=== PATIENT | female | born 1995 | race Caucasian/White ===

== ENCOUNTER 2019-05-11 05:38 | Inpatient (IN) | payer OTHER ==
[2019-05-11] MEDS ORDERED: Oxytocin/Normal Saline 30 UNIT/500 ML BAG ONE (06:39)
[2019-05-11] MEDS ORDERED: Lidocaine 1% 30 ML SDV ONE (06:39)
[2019-05-11] MEDS ORDERED: Misoprostol 400 MCG (4 X 100 MCG TAB) RECTAL PRN (06:50)
[2019-05-11] MEDS ORDERED: Lidocaine 1% 30 ML SDV INJECT PRN (06:50)
[2019-05-11] MEDS ORDERED: Carboprost Tromethamine 250 MCG/1 ML Amp IM PRN (06:50)
[2019-05-11] MEDS ORDERED: Ondansetron 4 MG/2 ML SDV IVPUSH PRN (06:50)
[2019-05-11] MEDS ORDERED: Sodium Chloride 0.9% 10 ML Syringe FLUSH PRN ×2 (06:50→13:43)
[2019-05-11] MEDS ORDERED: Methylergonovine 0.2 MG/1 ML Amp IM PRN (06:50)
[2019-05-11] MEDS ORDERED: Tranexamic Acid 1,000 MG in Sodium Chloride 0.9% 100 ML IV PRN (06:50)
[2019-05-11] MEDS ORDERED: Acetaminophen 325 MG Tab PO PRN ×2 (06:50→13:43)
[2019-05-11] MEDS ORDERED: Lactated Ringers 1,000 ML IV ONE (06:50)
[2019-05-11] MEDS ORDERED: Oxytocin/Normal Saline 30 UNIT/500 ML BAG IV SCH (07:00)
[2019-05-11] MEDS ORDERED: fentaNYL 100 MCG/2 ML SDV ONE (07:04)
[2019-05-11] MEDS ORDERED: EPINEPHrine 1 MG/1 ML Amp ONE ×2 (07:04→12:43)
--- NOTE | 2019-05-11 07:07 | PCM.SN ---
- Free Text/Narrative Note: OB History and Physical 05/11/19 Chief Complaint: SROM HPI: 23 y.o. year old at 38w4d (Estimated Date of Delivery: 05/21/19) who presents with active labor after SROM around 0300 today. Her contractions have be getting stronger and more consistent since that time. She reports active movement. No known complications. She would like an intrathecal if able. ROS: Negative for headache, nausea, vomiting, diarrhea, fever, chills, hematuria , dysuria or bleeding per vagina. Allergies: NKDA Medications: and iron Medical Hx: none Surgical Hx: wisdom teeth Family Hx: no known bleeding or clotting disorders, no known defects or anomalies. OB Hx: first Social Hx: lives in [place], [place] with Chavo. Denies smoking, drinking or recreational drug use. There is a dog in the home. Labs: Blood Type: A postiive Rubella: Immune HBSAg: Nonreactive GBS: Negative Gonorrhea/Chlamydia: Not Detected HIV: Nonreactive RPR: Nonreactive Visit Labs: Laboratory Results - last 24 hr 05/11/19 05/11/19 Range/Units 06:00 06:40 WBC 18.1 H (5.0-10.0) 10^3/uL RBC 4.28 (4.2-5.4) 10^6/uL Hgb 13.5 (12.0-16.0) g/dL Hct 39.6 (37.0-47.0) % MCV 92.5 (80-100) fL MCH 31.5 (27.0-34.0) pg MCHC 34.1 (33.0-35.0) g/dL Plt Count 314 (150-450) 10^3/uL Membrane Rupture Positive (NEG) Physical Exam: Vitals: BP 125/83, HR 96, Temp 97.5 Gen: No distress CV: Well-perfused, 2+ distal pulses, regular rate and rhythm, no audible murmurs Resp: Non-labored, symmetrical chest expansion, clear to auscultation Abd: gravid, soft, non tender Ext: Moves all extremities, no edema. SVE: 9/100/0 FHT: 130, moderate variability, accelerations present, no decelerations noted CTX: Q 2-5 mins Assessment: 23 y.o. year old at 38w4d who presents with active labor. Cat I Strip. Plan: - admit to labor and delivery - will get intrathecal if able - will follow closely Daisha Rey MD
[2019-05-11] MEDS: Lactated Ringers 1,000 ML IV SCH ×2 (07:25→09:30)
--- NOTE | 2019-05-11 08:46 | PCM.PRNOTE ---
- Free Text/Narrative Note: Requested to provide analgesia to full term patient in severe pain. Upon entering the room, patient is sitting on edge of bed complaining of severe abdominal/pelvic pain and discomfort. Procedure was discussed with patient including adverse outcomes and expectations. Pt consented to analgesia, SAB/ IT. Pt placed into a proper sitting position. Landmarks for SAB/IT were identified and marked. Hands were washed and appropriate PPE was applied. Back was prepped with betadine x3. A sterile, transparent, fenestrated drape was applied. Excess betadine was removed. Using 3 mL of a 1% lidocaine solution , a skin wheel was placed at the L2/L3 interspace. A 24 ga (4 inch) Pencan spinal needle was inserted until positive for CSF. Negative for heme or paresthesias. Injected fentanyl 30 mcg, sufentanil 25 mcg, and 6.75 mg of a 0.75% bupivacaine solution with an epi wash. Pt was placed left lateral position for approximately 20 minutes. There were zero complications or adverse outcomes. Will continue to monitor. Procedure Date & Time: 05/11/19 [id number]
--- NOTE | 2019-05-11 10:16 | PCM.DEL ---
L & D Note - General Info Date of Service: 05/11/19 (0931) Mother's Due Date: 05/21/19 - Delivery Note Labor: Spontaneous Delivery Outcome: Livebirth Delivery Method: Spontaneous Vaginal Delivery-Single Infant Delivery Mode: Spontaneous Presentation: Left Occiput Anterior (COOPER) Nuchal Cord: Present (delivered through) Anesthesia Type: Intrathecal Episiotomy Type: None Laceration: 2nd Degree (small) Suture size: 4-0 Placenta: Intact, Spontaneous Cord: 3 Vessels Estimated Blood Loss: 150 Resuscitation Needed: No : Stimulated, Warmed Score 1 min: 9 Score 5 min: 10 Second Stage Interventions: Reports: Pushing Effectively Delivery Comments (Free Text/Narrative):: Angie Keys is a 23 y.o. at 38w4d who presented with SROM and active labor. Category 1 tracing upon admission. She was dilated to 9 cm upon admission. She progressed without augmentation. Spontaneous rupture of membranes at 0300 with clear fluid. She was complete at 0830. She began pushing at approximately 0908. Delivered a liveborn female . Vigorous with spontaneous cry. Apgars of 9 and 10. weight pending. Placenta delivered spontaneously intact with a 3 vessel cord. IV Pitocin was started shortly after delivery of the placenta. EBL 150 mL. Small second degree perineal laceration repaired with 3-0 Vicryl suture and bilateral periurethral lacerations re- approximated with 4-0 suture. Hemostasis confirmed. Mother and doing well, is at breast. - General Info Date of Service: 05/11/19 Functional Status: Reports: Pain Controlled - Problem List Review Problem List Initiated/Reviewed/Updated: Yes - Assessment Assessment:: 23 yo G1 at 38w4d with SROM and active labor who delivered via with small second degree perineal laceration who is breast feeding and doing well. - Plan Plan:: Plan: - routine cares - encourage breast feeding - will follow closely Daisha Rey MD
[2019-05-11] MEDS ORDERED: fentaNYL 100 MCG/2 ML SDV ITHECAL ONE (12:43)
[2019-05-11] MEDS ORDERED: Oxytocin 10 Units/1 ML SDV IM PRN (13:43)
[2019-05-11] MEDS ORDERED: Benzocaine/Menthol 20%-0.5% Spray 56 GM Canister TOP PRN (13:43)
[2019-05-11] MEDS ORDERED: Docusate Sodium 100 MG Cap PO PRN (13:43)
[2019-05-11] MEDS ORDERED: Simethicone 80 MG Tab.Chew PO PRN (13:43)
[2019-05-11] MEDS ORDERED: Zolpidem 5 MG Tab PO PRN (13:43)
[2019-05-11] MEDS: Ibuprofen 800 MG Tab PO PRN (21:04)
[2019-05-12] MEDS: Ibuprofen 800 MG Tab PO PRN ×2 (08:54→20:27)
[2019-05-12] MEDS: Prenatal Multivitamin with Calcium/Folic Acid/Iron Tab PO SCH (08:54)
--- NOTE | 2019-05-12 14:36 | PN ---
DATE: 05/12/2019 LOCATION: [facility]. SUBJECTIVE: The patient is day 1 status post vaginal delivery at term. Mom and baby are both doing well. She reports her bleeding is minimal. PHYSICAL EXAMINATION: Vital Signs: The patient is afebrile. Heart rate 82, blood pressure 112/69, respiratory rate 16, O2 saturation 98%. Abdomen: Fundus is firm, below the umbilicus. Musculoskeletal: No tenderness. No edema to the extremities. LABORATORY DATA: The patient did have a hemoglobin predelivery which was 13.5. She has a CBC pending for tomorrow. Blood type is A positive. She is Rubella immune. ASSESSMENT AND PLAN: day #1 status post vaginal delivery. The patient is now G1, P1. Her and baby are both doing well. We will continue care and likely discharge her tomorrow. [facility] /[id number]
[2019-05-13] MEDS: Prenatal Multivitamin with Calcium/Folic Acid/Iron Tab PO SCH (08:28)
[2019-05-13] MEDS: Ibuprofen 800 MG Tab PO PRN (08:29)
--- NOTE | 2019-05-13 12:34 | DISCH ---
DATE: 05/13/2019 LOCATION: [facility]. SUBJECTIVE: The patient is day #2 from a vaginal delivery. She is now a G1, P1. Her and baby are both doing well. Lochia is minimal. PHYSICAL EXAMINATION: Vital Signs: The patient is afebrile, heart rate 89 to 101, blood pressure 114 to 117 systolic over 75 to 83, diastolic, respiratory rate 16, O2 saturation 99%. Abdomen: The patient's fundus is firm, below the umbilicus. Extremities: Have no tenderness, no edema. LABORATORY DATA: Blood type is A positive. She is Rubella immune. Predelivery hemoglobin was 13.5. Hemoglobin this morning is 12.3, white count 10, platelets 289. ASSESSMENT AND PLAN: day 2 status post vaginal delivery. Mom and baby are both doing well. We will discharge her to home with a followup in 6 weeks, and I did give her a prescription for a breast pump. [facility] /[id number]
== END 2019-05-13 12:45 | disposition home or self-care (01) | DRG 807 ==
LOC: DL.OBCHECK 05:38 → UNDOADMOB 06:40 → DL.OB 06:40 → OBSVTOIN 09:31
PROVIDERS: ADMIT Family Medicine; ATTEND Family Medicine
PROC: 10E0XZZ Delivery of Products of Conception, External Approach (ICD-10-PCS; principal; 2019-05-11)
PROC: 0KQM0ZZ Repair Perineum Muscle, Open Approach (ICD-10-PCS; 2019-05-11)
PROC: 3E0R3BZ Introduction of Anesthetic Agent into Spinal Canal, Percutaneous Approach (ICD-10-PCS; 2019-05-11)
PROC: 00HU33Z Insertion of Infusion Device into Spinal Canal, Percutaneous Approach (ICD-10-PCS; 2019-05-11)
DX: O70.1 Second degree perineal laceration during delivery (principal); Z37.0 Single live birth; Z3A.38 38 weeks gestation of pregnancy; Z28.82 Immunization not carried out because of caregiver refusal
CPT/HCPCS: 36415; 59409; 84112; 85027; A9270-GY; J0171; J2590; J3010; J7120

== ENCOUNTER 2020-09-23 14:34 | Inpatient (IN) | payer OTHER ==
[2020-09-23] MEDS ORDERED: Acetaminophen 325 MG Tab PO PRN ×2 (15:16→16:41)
[2020-09-23] MEDS ORDERED: Misoprostol 400 MCG (4 X 100 MCG TAB) RECTAL PRN ×2 (15:16→16:41)
[2020-09-23] MEDS ORDERED: Lactated Ringers 1,000 ML IV ONE (15:16)
[2020-09-23] MEDS ORDERED: Carboprost Tromethamine 250 MCG/1 ML Amp IM PRN ×2 (15:16→16:41)
[2020-09-23] MEDS ORDERED: Butorphanol 2 MG/ML SDV IVPUSH PRN (15:16)
[2020-09-23] MEDS ORDERED: Ondansetron 4 MG/2 ML SDV IVPUSH PRN (15:16)
[2020-09-23] MEDS ORDERED: Methylergonovine 0.2 MG/1 ML Amp IM PRN (15:16)
[2020-09-23] MEDS ORDERED: Tranexamic Acid 1,000 MG in Sodium Chloride 0.9% 100 ML IV PRN ×2 (15:16→16:41)
[2020-09-23] MEDS ORDERED: Sodium Chloride 0.9% 10 ML Syringe FLUSH PRN ×2 (15:16→16:41)
[2020-09-23] MEDS ORDERED: Lidocaine 1% 30 ML SDV INJECT PRN (15:16)
[2020-09-23] MEDS ORDERED: fentaNYL 100 MCG/2 ML SDV IVPUSH PRN (15:16)
[2020-09-23] MEDS ORDERED: Lactated Ringers 1,000 ML IV SCH (15:30)
[2020-09-23] MEDS ORDERED: Oxytocin/Normal Saline 30 UNIT/500 ML BAG IV SCH (15:30)
--- NOTE | 2020-09-23 15:43 | PCM.LDHP ---
L&D History of Present Illness - General Date of Service: 09/23/20 Admit Problem/Dx: Patient Status Order with Admit Dx/Problem 09/23/20 15:17 Patient Status [ADT] Routine Admission Diagnosis/Problem Admission Diagnosis/Problem care in third trimester Source of Information: Patient - History of Present Illness Introduction:: Patient is at 39s6d who presents today for contractions. Contractions started around 11 AM. She had an OB appt this morning and her membranes were stripped. Contractions have picked up in frequency and intensity. Baby has been active, no leakage of fluids or vaginal bleeding. She's had an uncomplicated . GBS positive. 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: Social & Family History - Family History Family Medical History: No Pertinent Family History - Tobacco Use Tobacco Use Status *Q: Never Tobacco User - Caffeine Use Caffeine Use: Reports: None H&P Review of Systems - Review of Systems: Review Of Systems: See Below General: Denies: Fever, Chills HEENT: Denies: Headaches, Visual Changes Pulmonary: Denies: Shortness of Breath Cardiovascular: Denies: Chest Pain, Edema, Lightheadedness Gastrointestinal: Denies: Abdominal Pain, Diarrhea, Nausea, Vomiting Skin: Denies: Rash Neurological: Denies: Dizziness L&D Exam - Exam Exam: See Below - Vital Signs Weight: 79.379 kg - OB Specific Contraction Intensity: Moderate Movement: Active Heart Tones: Present Heart Tones per Min: 130 Heart Rate (FHR) Variability: Moderate (6-25 bmp) Presentation: Vertex - Lennon Score Lennon Score Cervix Position: Anterior Lennon Score Consistency: Soft Lennon Score Effacement: >80% Lennon Score Dilation: > 5 cm Lennon Score 's Station: -1 ,0 Lennon Score Total: 12 - Exam General: Alert, Oriented HEENT: Conjunctiva Clear, Mucosa Moist & [place] Neck: Supple, Trachea Midline Lungs: Clear to Auscultation, Normal Respiratory Effort Cardiovascular: Regular Rate, Regular Rhythm, Normal S1, Normal S2 GI/Abdominal Exam: Soft, Non-Tender Extremities: Non-Tender, No Pedal Edema Skin: Warm, Dry Neurological: Reflexes Equal Bilateral Psychiatric: Alert, Normal Affect, Normal Mood - Patient Data Lab Results Last 24 hrs: Laboratory Results - last 24 hr 09/23/20 Range/Units 15:25 WBC 11.7 H (5.0-10.0) 10^3/uL RBC 4.52 (4.2-5.4) 10^6/uL Hgb 14.1 D (12.0-16.0) g/dL Hct 42.6 (37.0-47.0) % MCV 94.2 (80-100) fL MCH 31.2 (27.0-34.0) pg MCHC 33.1 (33.0-35.0) g/dL Plt Count 280 (150-450) 10^3/uL Result Diagrams: 09/23/20 15:25 - Problem List (1) Term SNOMED Code(s): 69767922 ICD Code: Z34.90 - ENCNTR FOR SUPRVSN OF NORMAL , UNSP, UNSP TRIMESTER Status: Acute Current Visit: Yes (2) Active labor at term SNOMED Code(s): 69562134 ICD Code: SJQ0440 - Status: Acute Current Visit: Yes (3) Positive GBS test SNOMED Code(s): 763303684, 021779282 ICD Code: B95.1 - STREPTOCOCCUS, GROUP B, CAUSING DISEASES CLASSD ELSWHR Status: Acute Current Visit: Yes (4) Anemia affecting in third trimester SNOMED Code(s): 37205821, 16708797 ICD Code: O99.013 - ANEMIA COMPLICATING , THIRD TRIMESTER Status: Acute Current Visit: Yes (5) Short interval between pregnancies affecting in third trimester, antepartum SNOMED Code(s): 30531414, 96329598 ICD Code: O09.893 - SUPERVISION OF OTHER HIGH RISK PREGNANCIES, THIRD TRIMESTER Status: Acute Current Visit: Yes Problem List Initiated/Reviewed/Updated: Yes Orders Last 24hrs: Active Orders 24 hr Category Date Time Status Patient Status [ADT] Routine ADT 09/23/20 15:17 Active Communication Order [RC] ASDIRECTED Care 09/23/20 15:17 Active Heart Tones [RC] PER UNIT ROUTINE Care 09/23/20 15:17 Active Notify Provider Vital Signs OB [RC] ASDIRECTED Care 09/23/20 15:17 Active Notify Provider [RC] PRN Care 09/23/20 15:17 Active Pump Management, Intrathecal [RC] ASDIRECTED Care 09/23/20 15:16 Active Up ad Lety [RC] ASDIRECTED Care 09/23/20 15:17 Active Vital Signs [RC] PER UNIT ROUTINE Care 09/23/20 15:17 Active Clear Liquid Diet [DIET] Diet 09/23/20 Dinner Active CORONAVIRUS COVID-19 SIDNEY [MOLEC] Urgent Lab 09/23/20 15:00 Received Acetaminophen [TylenoL] Med 09/23/20 15:16 Active 650 mg PO Q4H PRN Butorphanol [Stadol] Med 09/23/20 15:16 Active 1 mg IVPUSH Q3H PRN Carboprost Tromethamine [Hemabate DS] Med 09/23/20 15:16 Active 250 mcg IM ASDIRECTED PRN Lactated Ringers [Ringers, Lactated] 1,000 ml Med 09/23/20 15:30 Active IV ASDIRECTED Lactated Ringers [Ringers, Lactated] 1,000 ml Med 09/23/20 15:16 Active IV BOLUS Lidocaine 1% [Xylocaine-MPF 1%] Med 09/23/20 15:16 Active 30 ml INJECT ASDIRECTED PRN Methylergonovine [Methergine] Med 09/23/20 15:16 Active 0.2 mg IM ASDIRECTED PRN Ondansetron [Zofran] Med 09/23/20 15:16 Active 4 mg IVPUSH Q4H PRN Oxytocin/Normal Saline [Pitocin in NS 30 UNIT/500 ML] Med 09/23/20 15:30 Active 30 unit in 500 ml IV TITRATE Penicillin G Potassium [Pfizerpen] 3 millunits Med 09/23/20 20:00 Active Sodium Chloride 0.9% [Normal Saline] 100 ml IV Q4H Penicillin G Potassium [Pfizerpen] 5 millunits Med 09/23/20 16:00 Active Sodium Chloride 0.9% [Normal Saline] 100 ml IV ONETIME Sodium Chloride 0.9% [Saline Flush] Med 09/23/20 15:16 Active 10 ml FLUSH ASDIRECTED PRN Tranexamic Acid [Cyklokapron] 1,000 mg Med 09/23/20 15:16 Active Sodium Chloride 0.9% [Normal Saline] 100 ml IV ONETIME fentaNYL [Sublimaze] Med 09/23/20 15:16 Active 100 mcg IVPUSH Q1H PRN miSOPROStoL [Cytotec] Med 09/23/20 15:16 Active 800 mcg RECTAL ASDIRECTED PRN Saline Lock Insert [OM.PC] Routine Oth 09/23/20 15:17 Ordered Resuscitation Status Routine Resus Stat 09/23/20 15:16 Ordered Medication Orders Acetaminophen (Acetaminophen 325 Mg Tab) 650 mg PO Q4H PRN PRN Reason: Pain (Mild 1-3) and fever Butorphanol Tartrate (Butorphanol 2 Mg/Ml Sdv) 1 mg IVPUSH Q3H PRN PRN Reason: Pain (moderate 4-6) Carboprost Tromethamine (Carboprost Tromethamine 250 Mcg/1 Ml Amp) 250 mcg IM ASDIRECTED PRN PRN Reason: HEMORRHAGE Fentanyl (Fentanyl 100 Mcg/2 Ml Sdv) 100 mcg IVPUSH Q1H PRN PRN Reason: Pain (severe 7-10) Lactated Ringer's (Ringers, Lactated) 1,000 mls @ 999 mls/hr IV BOLUS ONE Stop: 09/23/20 16:16 Lactated Ringer's (Ringers, Lactated) 1,000 mls @ 125 mls/hr IV ASDIRECTED ELISA Tranexamic Acid 1,000 mg/ (Sodium Chloride) 110 mls @ 660 mls/hr IV ONETIME PRN PRN Reason: Bleeding Oxytocin/Sodium Chloride (Pitocin In Ns 30 Unit/500 Ml) 30 unit in 500 mls @ 2 mls/hr IV TITRATE ELISA; Protocol Penicillin G Potassium 5 (millunits/ Sodium Chloride) 100 mls @ 200 mls/hr IV ONETIME ONE Stop: 09/23/20 16:29 Penicillin G Potassium 3 (millunits/ Sodium Chloride) 100 mls @ 200 mls/hr IV Q4H ELISA Lidocaine HCl (Lidocaine 1% 30 Ml Sdv) 30 ml INJECT ASDIRECTED PRN PRN Reason: Perineal Repair Methylergonovine Maleate (Methylergonovine 0.2 Mg/1 Ml Amp) 0.2 mg IM ASDIRECTED PRN PRN Reason: Hemorrhage Misoprostol (Misoprostol 400 Mcg (4 X 100 Mcg Tab)) 800 mcg RECTAL ASDIRECTED PRN PRN Reason: Hemorrhage Ondansetron HCl (Ondansetron 4 Mg/2 Ml Sdv) 4 mg IVPUSH Q4H PRN PRN Reason: Nausea/Vomiting Sodium Chloride (Sodium Chloride 0.9% 10 Ml Syringe) 10 ml FLUSH ASDIRECTED PRN PRN Reason: Keep Vein Open Assessment/Plan Comment:: Patient is in active labor. Admit to L & D. GBS positive: start penicillin Intrathecal as desired. Expect vaginal delivery. Ai Graves MD
[2020-09-23] MEDS ORDERED: Penicillin G Potassium 5 MILLUNITS in Sodium Chloride 0.9% 100 ML IV ONE (16:00)
--- NOTE | 2020-09-23 16:34 | PCM.PRNOTE ---
- Free Text/Narrative Note: Requested to provide analgesia to full term patient in severe pain. Upon entering the room, patient is sitting on edge of bed complaining of severe abdominal/pelvic pain and discomfort. Procedure was discussed with patient including adverse outcomes and expectations. Pt consented to analgesia, SAB/IT. Pt placed into a proper sitting position. Landmarks for SAB/IT were identified and marked. Hands were washed and appropriate PPE was applied. Back was prepped with betadine x3. A sterile, transparent, fenestrated drape was applied. Excess betadine was removed. Using 3 mL of a 1% lidocaine solution, a skin wheel was placed at the L2/L3 interspace. A 24 ga (4 inch) Pencan spinal needle was inserted until positive for CSF. Negative for heme or paresthesias. Injected fentanyl 30 mcg, sufentanil 25 mcg, and 5.25 mg of a 0.75% bupivacaine solution. Pt was placed left lateral tilt position for approximately 8 minutes. Pt developed slight hypotension, no symptoms, but the FHR dropped into the 70/80s. Pt was given two doses of 5 mg Ephedrine IVP, five minutes apart, to keep HR above 100 systolic. Baby was delivered rapidly and without complication. Will continue to monitor. Procedure Date & Time: 09/23/20 [id number]
[2020-09-23] MEDS ORDERED: Oxytocin 10 Units/1 ML SDV IM PRN (16:41)
[2020-09-23] MEDS ORDERED: Benzocaine/Menthol 20%-0.5% Spray 78 GM Cannister TOP PRN (16:41)
[2020-09-23] MEDS ORDERED: Simethicone 80 MG Tab.Chew PO PRN (16:41)
[2020-09-23] MEDS ORDERED: Zolpidem 5 MG Tab PO PRN (16:41)
--- NOTE | 2020-09-23 16:52 | PCM.DEL ---
L & D Note - General Info Date of Service: 09/23/20 - Delivery Note Labor: Spontaneous Delivery Outcome: Livebirth Delivery Method: Spontaneous Vaginal Delivery-Single Delivery Mode: Spontaneous Presentation: Left Occiput Anterior (COOPER) Nuchal Cord: None Anesthesia Type: Intrathecal Amniotic Fluid Description: Clear Episiotomy Type: None Laceration: 1st Degree, Perineal Suture type: Vicryl Suture size: 3-0 Placenta: Intact, Spontaneous Cord: 3 Vessels Resuscitation Needed: No Provider: Ai Graves Score 1 min: 9 Score 5 min: 10 Delivery Comments (Free Text/Narrative):: Patient was admitted in active labor after her membranes were stripped that morning. Upon arrival, she was around 4 cm dilated but progressed quickly to 7 or 8 cms in under an hour. Intrathecal was provided and she was complete shortly after it was given. Baby's heart rate did drop into the 70s-80s and did not recover. Mother was given ephedrine but baby had no increase in heart rate. Decided to proceed with pushing to deliver baby. Dr. Lemus called to room in the event we needed to apply a vacuum. Mother made great progress with her pushes and baby's heart rate improved to 100s. She pushed for 15 minutes and delivered viable female . Anterior shoulder was delivered with gentle traction. The cord was clamped and cut and brought to warmer for assessment. She did start crying spontaneously and APGARs were 9 and 10. Infant was returned to mother. Placenta was delivered intact via active management. Oxytocin was initiated immediately following the delivery of the placenta. Cervix, vagina, and perineum were explored. First degree perineal laceration was repaired with figure 8 stitch. Mother and were stable and remained in the delivery room. - General Info Date of Service: 09/23/20 - Patient Data Weight - Most Recent: 79.379 kg Lab Results Last 24 Hours: Laboratory Results - last 24 hr 09/23/20 09/23/20 Range/Units 15:00 15:25 WBC 11.7 H (5.0-10.0) 10^3/uL RBC 4.52 (4.2-5.4) 10^6/uL Hgb 14.1 D (12.0-16.0) g/dL Hct 42.6 (37.0-47.0) % MCV 94.2 (80-100) fL MCH 31.2 (27.0-34.0) pg MCHC 33.1 (33.0-35.0) g/dL Plt Count 280 (150-450) 10^3/uL SARS-CoV-2 RNA (SIDNEY) Negative (NEGATIVE) Med Orders - Current: Current Medications Acetaminophen (Acetaminophen 325 Mg Tab) 650 mg PO Q6H PRN PRN Reason: Pain/Fever Benzocaine/Menthol (Benzocaine/Menthol 20%-0.5% Wayne 78 Gm Cannister) 0 gm TOP Q4H PRN PRN Reason: Perineal comfort measures Butorphanol Tartrate (Butorphanol 2 Mg/Ml Sdv) 1 mg IVPUSH Q3H PRN PRN Reason: Pain (moderate 4-6) Carboprost Tromethamine (Carboprost Tromethamine 250 Mcg/1 Ml Amp) 250 mcg IM ASDIRECTED PRN PRN Reason: Excessive vaginal bleeding Docusate Sodium (Docusate Sodium 100 Mg Cap) 100 mg PO BID PRN PRN Reason: Constipation Lactated Ringer's (Ringers, Lactated) 1,000 mls @ 125 mls/hr IV ASDIRECTED ELISA Tranexamic Acid 1,000 mg/ (Sodium Chloride) 110 mls @ 660 mls/hr IV ONETIME PRN PRN Reason: Bleeding Oxytocin/Sodium Chloride (Pitocin In Ns 30 Unit/500 Ml) 30 unit in 500 mls @ 2 mls/hr IV TITRATE ELISA; Protocol Tranexamic Acid 1,000 mg/ (Sodium Chloride) 110 mls @ 660 mls/hr IV ONETIME PRN PRN Reason: Bleeding Ibuprofen (Ibuprofen 800 Mg Tab) 800 mg PO Q8H PRN PRN Reason: Pain Lidocaine HCl (Lidocaine 1% 30 Ml Sdv) 30 ml INJECT ASDIRECTED PRN PRN Reason: Perineal Repair Methylergonovine Maleate (Methylergonovine 0.2 Mg/1 Ml Amp) 0.2 mg IM ASDIRECTED PRN PRN Reason: Hemorrhage Misoprostol (Misoprostol 400 Mcg (4 X 100 Mcg Tab)) 800 mcg RECTAL ASDIRECTED PRN PRN Reason: Hemorrhage Misoprostol (Misoprostol 400 Mcg (4 X 100 Mcg Tab)) 800 mcg RECTAL ONETIME PRN PRN Reason: Hemorrhage Ondansetron HCl (Ondansetron 4 Mg/2 Ml Sdv) 4 mg IVPUSH Q4H PRN PRN Reason: Nausea/Vomiting Last Admin: 09/23/20 15:39 Dose: 4 mg Documented by: Oxytocin (Oxytocin 10 Units/1 Ml Sdv) 10 unit IM ONETIME PRN PRN Reason: Bleeding Prenat Multivit/[place]/Iron/Folic Ac ( Multivitamin With Calcium/Folic Acid/Iron Tab) 1 each PO DAILY [facility] Simethicone (Simethicone 80 Mg Tab.Chew) 80 mg PO Q4H PRN PRN Reason: Gas Sodium Chloride (Sodium Chloride 0.9% 10 Ml Syringe) 10 ml FLUSH ASDIRECTED PRN PRN Reason: Keep Vein Open Sodium Chloride (Sodium Chloride 0.9% 10 Ml Syringe) 10 ml FLUSH ASDIRECTED PRN PRN Reason: Keep Vein Open Zolpidem Tartrate (Zolpidem 5 Mg Tab) 5 mg PO BEDTIME PRN PRN Reason: Insomnia Discontinued Medications Acetaminophen (Acetaminophen 325 Mg Tab) 650 mg PO Q4H PRN PRN Reason: Pain (Mild 1-3) and fever Carboprost Tromethamine (Carboprost Tromethamine 250 Mcg/1 Ml Amp) 250 mcg IM ASDIRECTED PRN PRN Reason: HEMORRHAGE Fentanyl (Fentanyl 100 Mcg/2 Ml Sdv) 100 mcg IVPUSH Q1H PRN PRN Reason: Pain (severe 7-10) Lactated Ringer's (Ringers, Lactated) 1,000 mls @ 999 mls/hr IV BOLUS ONE Stop: 09/23/20 16:16 Last Admin: 09/23/20 15:21 Dose: 999 mls/hr Documented by: Penicillin G Potassium 5 (millunits/ Sodium Chloride) 100 mls @ 200 mls/hr IV ONETIME ONE Stop: 09/23/20 16:29 Last Admin: 09/23/20 15:40 Dose: 200 mls/hr Documented by: Penicillin G Potassium 3 (millunits/ Sodium Chloride) 100 mls @ 200 mls/hr IV Q4H [facility] - Problem List & Annotations (1) Term SNOMED Code(s): 57685505 Code(s): Z34.90 - ENCNTR FOR SUPRVSN OF NORMAL , UNSP, UNSP TRIMESTER Status: Acute Current Visit: Yes (2) Active labor at term SNOMED Code(s): 61057240 Code(s): GUT8988 - Status: Acute Current Visit: Yes (3) Positive GBS test SNOMED Code(s): 133928130, 778761486 Code(s): B95.1 - STREPTOCOCCUS, GROUP B, CAUSING DISEASES CLASSD ELSR Status: Acute Current Visit: Yes (4) Anemia affecting in third trimester SNOMED Code(s): 13692928, 20136316 Code(s): O99.013 - ANEMIA COMPLICATING , THIRD TRIMESTER Status: Acute Current Visit: Yes (5) Short interval between pregnancies affecting in third trimester, antepartum SNOMED Code(s): 18293248, 39624164 Code(s): O09.893 - SUPERVISION OF OTHER HIGH RISK PREGNANCIES, THIRD TRIMESTER Status: Acute Current Visit: Yes - Problem List Review Problem List Initiated/Reviewed/Updated: Yes - My Orders Last 24 Hours: My Active Orders 09/23/20 Breakfast Regular Diet [DIET] 09/23/20 Lunch Regular Diet [DIET] 09/23/20 16:00 Vital Signs [RC] PFP 09/23/20 16:41 Acetaminophen [TylenoL] 650 mg PO Q6H PRN Benzocaine/Menthol [Dermoplast Pain Relief 20%-0.5% Wayne] See Dose Instructions TOP Q4H PRN Carboprost Tromethamine [Hemabate DS] 250 mcg IM ASDIRECTED PRN Docusate Sodium [Colace] 100 mg PO BID PRN Ibuprofen [Motrin] 800 mg PO Q8H PRN Oxytocin [Pitocin] 10 unit IM ONETIME PRN Simethicone 80 mg PO Q4H PRN Sodium Chloride 0.9% [Saline Flush] 10 ml FLUSH ASDIRECTED PRN Tranexamic Acid [Cyklokapron] 1,000 mg Sodium Chloride 0.9% [Normal Saline] 100 ml IV ONETIME Zolpidem [Ambien] 5 mg PO BEDTIME PRN miSOPROStoL [Cytotec] 800 mcg RECTAL ONETIME PRN 09/23/20 16:43 Notify Provider Vital Signs OB [RC] ASDIRECTED Up ad Lety [RC] ASDIRECTED Assess Lochia [WOMSER] Per Unit Routine Assess Uterine Involution [WOMSER] Per Unit Routine Breast Pump [WOMSER] Per Unit Routine Ice Therapy [OM.PC] Per Unit Routine Perineal Care [OM.PC] Per Unit Routine Saline Lock Insert [OM.PC] Urgent Sitz Bath [OM.PC] Per Unit Routine 09/23/20 Dinner Regular Diet [DIET] 09/24/20 09:00 Vit with Ca/FA/Iron [ Plus Iron] 1 each PO DAILY 09/24/20 16:43 CBC W/O DIFF,HEMOGRAM [HEME] Routine - Plan Plan:: Patient is in active labor. Admit to L & D. GBS positive: start penicillin Intrathecal as desired. Expect vaginal delivery. Ai Graves MD
[2020-09-23] MEDS ORDERED: fentaNYL 100 MCG/2 ML SDV ITHECAL ONE (17:05)
[2020-09-23] MEDS ORDERED: ePHEDrine 50 MG/ML SDV IV ONE (17:05)
[2020-09-23] MEDS ORDERED: Penicillin G Potassium 3 MILLUNITS in Sodium Chloride 0.9% 100 ML IV SCH (20:00)
[2020-09-23] MEDS: Docusate Sodium 100 MG Cap PO PRN (22:32)
[2020-09-23] MEDS: Ibuprofen 800 MG Tab PO PRN (22:32)
[2020-09-24] MEDS: Docusate Sodium 100 MG Cap PO PRN (08:34)
[2020-09-24] MEDS: Ibuprofen 800 MG Tab PO PRN ×2 (08:34→16:34)
[2020-09-24] MEDS: Prenatal Multivitamin with Calcium/Folic Acid/Iron Tab PO SCH (08:36)
--- NOTE | 2020-09-24 09:32 | PCM.PNPP ---
- General Info Date of Service: 09/24/20 Subjective Update: Patient is day 1 s/p . She reports her lochia is mild in degree. She is . She has adequate pain control with OTC medications. She has been advancing her diet and has good PO intake. She denies nausea or vomiting. She has been urinating spontaneously. She has been ambulating. She has no complaints. No acute events overnight. Functional Status: Reports: Pain Controlled - Review of Systems General: Denies: Fever, Chills HEENT: Denies: Headaches, Visual Changes Pulmonary: Denies: Shortness of Breath Cardiovascular: Denies: Edema, Lightheadedness Gastrointestinal: Denies: Diarrhea, Nausea, Vomiting Skin: Denies: Rash Neurological: Denies: Headache, Weakness - Patient Data Vital Signs - Most Recent: Last Vital Signs Temp 99 F 09/23/20 20:00 Pulse 88 09/23/20 20:00 Resp 16 09/23/20 20:00 BP 106/53 L 09/23/20 20:00 Pulse Ox Weight - Most Recent: 79.379 kg Lab Results - Last 24 Hours: Laboratory Results - last 24 hr 09/23/20 09/23/20 09/24/20 Range/Units 15:00 15:25 06:10 WBC 11.7 H 9.3 (5.0-10.0) 10^3/uL RBC 4.52 3.80 L (4.2-5.4) 10^6/uL Hgb 14.1 D 12.1 D (12.0-16.0) g/dL Hct 42.6 36.6 L (37.0-47.0) % MCV 94.2 96.3 (80-100) fL MCH 31.2 31.8 (27.0-34.0) pg MCHC 33.1 33.1 (33.0-35.0) g/dL Plt Count 280 206 (150-450) 10^3/uL SARS-CoV-2 RNA ([facility]) Negative (NEGATIVE) Med Orders - Current: Current Medications Acetaminophen (Acetaminophen 325 Mg Tab) 650 mg PO Q6H PRN PRN Reason: Pain/Fever Benzocaine/Menthol (Benzocaine/Menthol 20%-0.5% [place] 78 Gm Cannister) 0 gm TOP Q4H PRN PRN Reason: Perineal comfort measures Last Admin: 09/23/20 22:33 Dose: 1 spray Documented by: Butorphanol Tartrate (Butorphanol 2 Mg/Ml Sdv) 1 mg IVPUSH Q3H PRN PRN Reason: Pain (moderate 4-6) Carboprost Tromethamine (Carboprost Tromethamine 250 Mcg/1 Ml Amp) 250 mcg IM ASDIRECTED PRN PRN Reason: Excessive vaginal bleeding Docusate Sodium (Docusate Sodium 100 Mg Cap) 100 mg PO BID PRN PRN Reason: Constipation Last Admin: 09/24/20 08:34 Dose: 100 mg Documented by: Lactated Ringer's (Ringers, Lactated) 1,000 mls @ 125 mls/hr IV ASDIRECTED ELISA Last Admin: 09/23/20 15:50 Dose: 125 mls/hr Documented by: Tranexamic Acid 1,000 mg/ (Sodium Chloride) 110 mls @ 660 mls/hr IV ONETIME PRN PRN Reason: Bleeding Oxytocin/Sodium Chloride (Pitocin In Ns 30 Unit/500 Ml) 30 unit in 500 mls @ 2 mls/hr IV TITRATE ELISA; Protocol Last Titration: 09/23/20 17:45 Dose: Infused Documented by: Tranexamic Acid 1,000 mg/ (Sodium Chloride) 110 mls @ 660 mls/hr IV ONETIME PRN PRN Reason: Bleeding Ibuprofen (Ibuprofen 800 Mg Tab) 800 mg PO Q8H PRN PRN Reason: Pain Last Admin: 09/24/20 08:34 Dose: 800 mg Documented by: Lidocaine HCl (Lidocaine 1% 30 Ml Sdv) 30 ml INJECT ASDIRECTED PRN PRN Reason: Perineal Repair Methylergonovine Maleate (Methylergonovine 0.2 Mg/1 Ml Amp) 0.2 mg IM ASDIRECTED PRN PRN Reason: Hemorrhage Misoprostol (Misoprostol 400 Mcg (4 X 100 Mcg Tab)) 800 mcg RECTAL ASDIRECTED PRN PRN Reason: Hemorrhage Misoprostol (Misoprostol 400 Mcg (4 X 100 Mcg Tab)) 800 mcg RECTAL ONETIME PRN PRN Reason: Hemorrhage Ondansetron HCl (Ondansetron 4 Mg/2 Ml Sdv) 4 mg IVPUSH Q4H PRN PRN Reason: Nausea/Vomiting Last Admin: 09/23/20 15:39 Dose: 4 mg Documented by: Oxytocin (Oxytocin 10 Units/1 Ml Sdv) 10 unit IM ONETIME PRN PRN Reason: Bleeding Prenat Multivit/[place]/Iron/Folic Ac ( Multivitamin With Calcium/Folic Acid/Iron Tab) 1 each PO DAILY [facility] Last Admin: 09/24/20 08:36 Dose: 1 each Documented by: Simethicone (Simethicone 80 Mg Tab.Chew) 80 mg PO Q4H PRN PRN Reason: Gas Sodium Chloride (Sodium Chloride 0.9% 10 Ml Syringe) 10 ml FLUSH ASDIRECTED PRN PRN Reason: Keep Vein Open Sodium Chloride (Sodium Chloride 0.9% 10 Ml Syringe) 10 ml FLUSH ASDIRECTED PRN PRN Reason: Keep Vein Open Zolpidem Tartrate (Zolpidem 5 Mg Tab) 5 mg PO BEDTIME PRN PRN Reason: Insomnia Discontinued Medications Acetaminophen (Acetaminophen 325 Mg Tab) 650 mg PO Q4H PRN PRN Reason: Pain (Mild 1-3) and fever Carboprost Tromethamine (Carboprost Tromethamine 250 Mcg/1 Ml Amp) 250 mcg IM ASDIRECTED PRN PRN Reason: HEMORRHAGE Fentanyl (Fentanyl 100 Mcg/2 Ml Sdv) 100 mcg IVPUSH Q1H PRN PRN Reason: Pain (severe 7-10) Lactated Ringer's (Ringers, Lactated) 1,000 mls @ 999 mls/hr IV BOLUS ONE Stop: 09/23/20 16:16 Last Admin: 09/23/20 15:21 Dose: 999 mls/hr Documented by: Penicillin G Potassium 5 (millunits/ Sodium Chloride) 100 mls @ 200 mls/hr IV ONETIME ONE Stop: 09/23/20 16:29 Last Admin: 09/23/20 15:40 Dose: 200 mls/hr Documented by: Penicillin G Potassium 3 (millunits/ Sodium Chloride) 100 mls @ 200 mls/hr IV Q4H [facility] - Interaction Support Person: - Recovery Exam Fundal Tone: Firm Fundal Level: At Umbilicus Fundal Placement: Midline Lochia Amount: Small Lochia Color: Rubra/Red Perineum Description: Edematous Bladder Status: Voiding - Exam General: Alert, Cooperative HEENT: Mucous Membr. Moist/[place] Neck: Supple, Trachea Midline Lungs: Clear to Auscultation, Normal Respiratory Effort Cardiovascular: Regular Rate, Regular Rhythm GI/Abdominal Exam: Soft, Non-Tender Extremities: Normal Inspection, No Pedal Edema Skin: Warm, Dry Neurological: No New Focal Deficit Psy/Mental Status: Alert, Normal Affect, Normal Mood - Problem List & Annotations (1) Term SNOMED Code(s): 25160664 Code(s): Z34.90 - ENCNTR FOR SUPRVSN OF NORMAL , UNSP, UNSP TRIMESTER Status: Acute Current Visit: Yes (2) Active labor at term SNOMED Code(s): 81124460 Code(s): LRT8771 - Status: Acute Current Visit: Yes (3) Positive GBS test SNOMED Code(s): 055972154, 943571391 Code(s): B95.1 - STREPTOCOCCUS, GROUP B, CA[facility]ING [facility]EASES [facility] Status: Acute Current Visit: Yes (4) Anemia affecting in third trimester SNOMED Code(s): 39434110, 80177685 Code(s): O99.013 - ANEMIA COMPLICATING , THIRD TRIMESTER Status: Acute Current Visit: Yes (5) Short interval between pregnancies affecting in third trimester, antepartum SNOMED Code(s): 75591370, 54569547 Code(s): O09.893 - SUPERVISION OF OTHER HIGH RISK PREGNANCIES, THIRD TRIMESTER Status: Acute Current Visit: Yes (6) (normal spontaneous vaginal delivery) SNOMED Code(s): 13064385, 354497201 Code(s): O80 - ENCOUNTER FOR FULL-TERM UNCOMPLICATED DELIVERY Status: Acute Current Visit: Yes (7) First degree laceration of perineum during delivery, SNOMED Code(s): 582220794 Code(s): O70.0 - FIRST DEGREE PERINEAL LACERATION DURING DELIVERY Status: Acute Current Visit: Yes - Problem List Review Problem List Initiated/Reviewed/Updated: Yes - My Orders Last 24 Hours: My Active Orders 09/23/20 Lunch Regular Diet [DIET] 09/23/20 16:00 Vital Signs [RC] 08,20 09/23/20 16:41 Acetaminophen [TylenoL] 650 mg PO Q6H PRN Benzocaine/Menthol [Dermoplast Pain Relief 20%-0.5% [place]] See Dose Instructions TOP Q4H PRN Carboprost Tromethamine [Hemabate DS] 250 mcg IM ASDIRECTED PRN Docusate Sodium [Colace] 100 mg PO BID PRN Ibuprofen [Motrin] 800 mg PO Q8H PRN Oxytocin [Pitocin] 10 unit IM ONETIME PRN Simethicone 80 mg PO Q4H PRN Sodium Chloride 0.9% [Saline Flush] 10 ml FLUSH ASDIRECTED PRN Tranexamic Acid [Cyklokapron] 1,000 mg Sodium Chloride 0.9% [Normal Saline] 100 ml IV ONETIME Zolpidem [Ambien] 5 mg PO BEDTIME PRN miSOPROStoL [Cytotec] 800 mcg RECTAL ONETIME PRN 09/23/20 16:43 Up ad Lety [RC] ASDIRECTED Assess Lochia [WOMSER] Per Unit Routine Assess Uterine Involution [WOMSER] Per Unit Routine Breast Pump [WOMSER] Per Unit Routine Ice Therapy [OM.PC] Per Unit Routine Perineal Care [OM.PC] Per Unit Routine Saline Lock Insert [OM.PC] Urgent Sitz Bath [OM.PC] Per Unit Routine 09/23/20 Dinner Regular Diet [DIET] 09/24/20 09:00 Vit with Ca/FA/Iron [ Plus Iron] 1 each PO DAILY - Plan Plan:: Continue post cares. to talk with mother today. Plan for discharge home tomorrow. Ai Graves MD
[2020-09-25] MEDS: Ibuprofen 800 MG Tab PO PRN (02:57)
--- NOTE | 2020-09-25 04:40 | PCM.DCSUM1 ---
Discharge Summary - Hospital Course Brief History: Patient admitted in active labor. Intrathecal was provided. Baby had prolonged decel afterwards and patient found to be complete. She was told to push and delivered viable female . Her post stay was uneventful and she was discharged home on post day 2. - Discharge Data Discharge Date: 09/25/20 Discharge Disposition: Home, Self-Care 01 Condition: Good - Referral to Home Health Primary Care Physician: Ai Graves MD - Discharge Diagnosis/Problem(s) (1) Term SNOMED Code(s): 39309812 ICD Code: Z34.90 - ENCNTR FOR SUPRVSN OF NORMAL , UNSP, UNSP TRIMESTER Status: Acute Current Visit: Yes (2) Active labor at term SNOMED Code(s): 97710429 ICD Code: [id number] - Status: Acute Current Visit: Yes (3) Positive GBS test SNOMED Code(s): 751241360, 027370790 ICD Code: B95.1 - STREPTOCOCCUS, GROUP B, CAUSING DISEASES CLASSD [facility] Status: Acute Current Visit: Yes (4) Anemia affecting in third trimester SNOMED Code(s): 52675292, 30288769 ICD Code: O99.013 - ANEMIA COMPLICATING , THIRD TRIMESTER Status: Acute Current Visit: Yes (5) Short interval between pregnancies affecting in third trimester, antepartum SNOMED Code(s): 57451050, 99272057 ICD Code: O09.893 - SUPERVISION OF OTHER HIGH RISK PREGNANCIES, THIRD TRIMESTER Status: Acute Current Visit: Yes (6) (normal spontaneous vaginal delivery) SNOMED Code(s): 62350540, 058943293 ICD Code: O80 - ENCOUNTER FOR FULL-TERM UNCOMPLICATED DELIVERY Status: Acute Current Visit: Yes (7) First degree laceration of perineum during delivery, SNOMED Code(s): 641458459 ICD Code: O70.0 - FIRST DEGREE PERINEAL LACERATION DURING DELIVERY Status: Acute Current Visit: Yes - Discharge Plan *PRESCRIPTION DRUG MONITORING PROGRAM REVIEWED*: Not Applicable *COPY OF PRESCRIPTION DRUG MONITORING REPORT IN PATIENT RAJANI: Not Applicable Home Medications: Home Meds Ferrous Sulfate 325 mg PO DAILY 05/11/19 [History] Vit with Ca/FA/Iron [ Plus Iron] 1 tab PO DAILY 05/11/19 [History] Acetaminophen [Tylenol] 650 mg PO Q6H PRN tablet 09/25/20 [Rx] Docusate Sodium [Colace] 100 mg PO BID PRN cap 09/25/20 [Rx] Ibuprofen [Motrin] 800 mg PO Q8H PRN tablet 09/25/20 [Rx] Patient Handouts: Care After Vaginal Delivery - Discharge Summary/Plan Comment DC Time >30 min.: No Discharge Summary/Plan Comment: Discharge to home. Pelvic rest for 6 weeks. Red flag signs/symptoms reviewed with patient. Will see her back for 6 week post visit and discuss control options at that time. Signs of post depression reviewed with patient and her . Ai Graves MD - General Info Date of Service: 09/25/20 Subjective Update: Patient is day 2 s/p . She reports her lochia is mild. She is . She has good pain control with OTC medications. She has been advancing her diet and has good PO intake. Patient denies nausea, vomiting. She is urinating spontaneously. She has been ambulating. No acute events overnight. She is ready for discharge. Functional Status: Reports: Pain Controlled - Review of Systems General: Denies: Fever, Chills HEENT: Denies: Headaches, Sore Throat, Visual Changes Pulmonary: Denies: Shortness of Breath, Cough Cardiovascular: Denies: Chest Pain, Edema, Lightheadedness Gastrointestinal: Denies: Abdominal Pain, Nausea, Vomiting Skin: Denies: Rash Neurological: Denies: Dizziness, Headache Psychiatric: Denies: Depression - Patient Data Vitals - Most Recent: Last Vital Signs Temp 97.8 F 09/24/20 20:00 Pulse 84 09/24/20 20:00 Resp 16 09/24/20 20:00 BP 109/64 09/24/20 20:00 Pulse Ox 96 09/24/20 20:00 Weight - Most Recent: 79.379 kg Lab Results - Last 24 hrs: Laboratory Results - last 24 hr 09/24/20 Range/Units 06:10 WBC 9.3 (5.0-10.0) 10^3/uL RBC 3.80 L (4.2-5.4) 10^6/uL Hgb 12.1 D (12.0-16.0) g/dL Hct 36.6 L (37.0-47.0) % MCV 96.3 (80-100) fL MCH 31.8 (27.0-34.0) pg MCHC 33.1 (33.0-35.0) g/dL Plt Count 206 (150-450) 10^3/uL Med Orders - Current: Current Medications Acetaminophen (Acetaminophen 325 Mg Tab) 650 mg PO Q6H PRN PRN Reason: Pain/Fever Benzocaine/Menthol (Benzocaine/Menthol 20%-0.5% [place] 78 Gm Cannister) 0 gm TOP Q4H PRN PRN Reason: Perineal comfort measures Last Admin: 09/23/20 22:33 Dose: 1 spray Documented by: Butorphanol Tartrate (Butorphanol 2 Mg/Ml Sdv) 1 mg IVPUSH Q3H PRN PRN Reason: Pain (moderate 4-6) Carboprost Tromethamine (Carboprost Tromethamine 250 Mcg/1 Ml Amp) 250 mcg IM ASDIRECTED PRN PRN Reason: Excessive vaginal bleeding Docusate Sodium (Docusate Sodium 100 Mg Cap) 100 mg PO BID PRN PRN Reason: Constipation Last Admin: 09/24/20 08:34 Dose: 100 mg Documented by: Lactated Ringer's (Ringers, Lactated) 1,000 mls @ 125 mls/hr IV ASDIRECTED ELISA Last Admin: 09/23/20 15:50 Dose: 125 mls/hr Documented by: Tranexamic Acid 1,000 mg/ (Sodium Chloride) 110 mls @ 660 mls/hr IV ONETIME PRN PRN Reason: Bleeding Oxytocin/Sodium Chloride (Pitocin In Ns 30 Unit/500 Ml) 30 unit in 500 mls @ 2 mls/hr IV TITRATE ELISA; Protocol Last Titration: 09/23/20 17:45 Dose: Infused Documented by: Tranexamic Acid 1,000 mg/ (Sodium Chloride) 110 mls @ 660 mls/hr IV ONETIME PRN PRN Reason: Bleeding Ibuprofen (Ibuprofen 800 Mg Tab) 800 mg PO Q8H PRN PRN Reason: Pain Last Admin: 09/25/20 02:57 Dose: 800 mg Documented by: Lidocaine HCl (Lidocaine 1% 30 Ml Sdv) 30 ml INJECT ASDIRECTED PRN PRN Reason: Perineal Repair Methylergonovine Maleate (Methylergonovine 0.2 Mg/1 Ml Amp) 0.2 mg IM ASDIRECTED PRN PRN Reason: Hemorrhage Misoprostol (Misoprostol 400 Mcg (4 X 100 Mcg Tab)) 800 mcg RECTAL ASDIRECTED PRN PRN Reason: Hemorrhage Misoprostol (Misoprostol 400 Mcg (4 X 100 Mcg Tab)) 800 mcg RECTAL ONETIME PRN PRN Reason: Hemorrhage Ondansetron HCl (Ondansetron 4 Mg/2 Ml Sdv) 4 mg IVPUSH Q4H PRN PRN Reason: Nausea/Vomiting Last Admin: 09/23/20 15:39 Dose: 4 mg Documented by: Oxytocin (Oxytocin 10 Units/1 Ml Sdv) 10 unit IM ONETIME PRN PRN Reason: Bleeding Prenat Multivit/[employer]/Iron/Folic Ac ( Multivitamin With Calcium/Folic Acid/Iron Tab) 1 each PO DAILY ELISA Last Admin: 09/24/20 08:36 Dose: 1 each Documented by: Simethicone (Simethicone 80 Mg Tab.Chew) 80 mg PO Q4H PRN PRN Reason: Gas Sodium Chloride (Sodium Chloride 0.9% 10 Ml Syringe) 10 ml FLUSH ASDIRECTED PRN PRN Reason: Keep Vein Open Sodium Chloride (Sodium Chloride 0.9% 10 Ml Syringe) 10 ml FLUSH ASDIRECTED PRN PRN Reason: Keep Vein Open Zolpidem Tartrate (Zolpidem 5 Mg Tab) 5 mg PO BEDTIME PRN PRN Reason: Insomnia Discontinued Medications Acetaminophen (Acetaminophen 325 Mg Tab) 650 mg PO Q4H PRN PRN Reason: Pain (Mild 1-3) and fever Carboprost Tromethamine (Carboprost Tromethamine 250 Mcg/1 Ml Amp) 250 mcg IM ASDIRECTED PRN PRN Reason: HEMORRHAGE Ephedrine Sulfate (Ephedrine 50 Mg/Ml Sdv) 20 mg IV .STK-MED ONE Stop: 09/23/20 17:06 Fentanyl (Fentanyl 100 Mcg/2 Ml Sdv) 100 mcg IVPUSH Q1H PRN PRN Reason: Pain (severe 7-10) Fentanyl (Fentanyl 100 Mcg/2 Ml Sdv) 30 mcg ITHECAL .STK-MED ONE Stop: 09/23/20 17:06 Lactated Ringer's (Ringers, Lactated) 1,000 mls @ 999 mls/hr IV BOLUS ONE Stop: 09/23/20 16:16 Last Admin: 09/23/20 15:21 Dose: 999 mls/hr Documented by: Penicillin G Potassium 5 (millunits/ Sodium Chloride) 100 mls @ 200 mls/hr IV ONETIME ONE Stop: 09/23/20 16:29 Last Admin: 09/23/20 15:40 Dose: 200 mls/hr Documented by: Penicillin G Potassium 3 (millunits/ Sodium Chloride) 100 mls @ 200 mls/hr IV Q4H ELISA Sufentanil Citrate (Sufentanil 50 Mcg/1 Ml Amp) 25 mcg ITHE[place] .STK-MED ONE Stop: 09/23/20 17:06 - Exam General: Reports: Alert, Oriented HEENT: Reports: Mucous Membr. Moist/[place] Neck: Reports: Supple Lungs: Reports: Clear to Auscultation, Normal Respiratory Effort Cardiovascular: Reports: Regular Rate, Regular Rhythm GI/Abdominal Exam: Soft, Non-Tender, No Distention Extremities: Normal Inspection, Non-Tender, No Pedal Edema Skin: Reports: Warm, Dry Neurological: Reports: No New Focal Deficit Psy/Mental Status: Reports: Alert, Normal Affect, Normal Mood
[2020-09-25] MEDS: Prenatal Multivitamin with Calcium/Folic Acid/Iron Tab PO SCH (08:48)
[2020-09-25] MEDS: Docusate Sodium 100 MG Cap PO PRN (08:48)
== END 2020-09-25 10:53 | disposition home or self-care (01) | DRG 807 ==
LOC: DL.OBCHECK 14:34 → DL.OB 15:17 → OBSVTOIN 16:13 → DL.OB 16:13
PROVIDERS: ADMIT Family Medicine; ATTEND Family Medicine
PROC: 10E0XZZ Delivery of Products of Conception, External Approach (ICD-10-PCS; principal; 2020-09-23)
PROC: 0HQ9XZZ Repair Perineum Skin, External Approach (ICD-10-PCS; 2020-09-23)
DX: O99.824 Streptococcus B carrier state complicating childbirth (principal); Z37.0 Single live birth; Z3A.39 39 weeks gestation of pregnancy; O99.02 Anemia complicating childbirth; D64.9 Anemia, unspecified; O70.0 First degree perineal laceration during delivery; Z20.822 Contact with and (suspected) exposure to COVID-19
CPT/HCPCS: 36415; 59409; 85027; A9270-GY; J2405; J2540; J2590; J3010; J7120; U0002

== ENCOUNTER 2023-08-20 17:31 | Inpatient (IN) | payer OTHER ==
[2023-08-20] MEDS ORDERED: Ondansetron 4 MG/2 ML SDV IVPUSH PRN (18:32)
[2023-08-20] MEDS ORDERED: fentaNYL 100 MCG/2 ML SDV IVPUSH PRN (18:32)
[2023-08-20] MEDS ORDERED: Sodium Chloride 0.9% 10 ML Syringe FLUSH PRN ×2 (18:32→21:40)
[2023-08-20] MEDS ORDERED: Methylergonovine 0.2 MG/1 ML Amp IM PRN (18:32)
[2023-08-20] MEDS ORDERED: Misoprostol 400 MCG (4 X 100 MCG TAB) RECTAL PRN (18:32)
[2023-08-20] MEDS ORDERED: Carboprost Tromethamine 250 MCG/1 ML Amp IM PRN (18:32)
[2023-08-20] MEDS ORDERED: Tranexamic Acid 1,000 MG in Sodium Chloride 0.9% 100 ML IV PRN (18:32)
[2023-08-20] MEDS: Lactated Ringers 1,000 ML IV ONE (18:50)
[2023-08-20] MEDS ORDERED: fentaNYL 100 MCG/2 ML SDV ONE (19:06)
[2023-08-20] MEDS ORDERED: Bupivacaine 0.25% 10 ML SDV ONE (19:06)
[2023-08-20 19:07] LABS: HEMATOCRIT 39.8 % (37.0-47.0); HEMOGLOBIN 13.3 g/dL (12.0-16.0); MEAN CORPUSCULAR HEMOGLOBIN 30.5 pg (27.0-34.0); MEAN CORPUSCULAR HGB CONC 33.4 g/dL (33.0-35.0); MEAN CORPUSCULAR VOLUME 91.3 fL (80-100); RED BLOOD CELL COUNT 4.36 10^6/uL (4.2-5.4)
[2023-08-20] MEDS: Lactated Ringers 1,000 ML IV SCH (19:34)
[2023-08-20] MEDS ORDERED: Phenylephrine HCl In 0.9% NaCl 1 MG/10 ML Syringe IVPUSH PRN (19:37)
[2023-08-20] MEDS ORDERED: ePHEDrine 50 MG/ML SDV IVPUSH PRN (19:37)
[2023-08-20] MEDS ORDERED: Ropivacaine 200 MG in Premix Bag 1 BAG EPIDUR SCH (19:45)
[2023-08-20] MEDS: Oxytocin/Normal Saline 30 UNIT/500 ML BAG IV SCH (21:28)
[2023-08-20] MEDS ORDERED: Witch Hazel Medicated Pads 100/Jar TOP PRN (21:40)
[2023-08-20] MEDS ORDERED: Oxytocin 10 Units/1 ML SDV IM PRN (21:40)
[2023-08-20] MEDS ORDERED: Simethicone 80 MG Tab.Chew PO PRN (21:40)
[2023-08-20] MEDS ORDERED: Hydrocortisone 2.5% Crm 30 GM Tube TOP PRN (21:40)
[2023-08-21] MEDS: Benzocaine/Menthol 20%-0.5% Spray 78 GM Cannister TOP PRN (03:39)
[2023-08-21] MEDS: Ibuprofen 800 MG Tab PO PRN (03:39)
[2023-08-21] MEDS: Lidocaine 1% 30 ML SDV INJECT ONE (06:17)
[2023-08-21 06:29] LABS: HEMATOCRIT 36.9 % (37.0-47.0); MEAN CORPUSCULAR HEMOGLOBIN 30.1 pg (27.0-34.0); MEAN CORPUSCULAR HGB CONC 32.5 g/dL (33.0-35.0); MEAN CORPUSCULAR VOLUME 92.5 fL (80-100); RED BLOOD CELL COUNT 3.99 10^6/uL (4.2-5.4); WHITE BLOOD CELL COUNT,WBC 12.2 10^3/uL (5.0-10.0)
[2023-08-21] MEDS: Prenatal Multivitamin with Calcium/Folic Acid/Iron Tab PO SCH (08:01)
[2023-08-21] MEDS: Docusate Sodium 100 MG Cap PO PRN (08:02)
[2023-08-21] MEDS: Acetaminophen 325 MG Tab PO PRN (10:09)
== END 2023-08-22 09:10 | disposition home or self-care (01) | DRG 807 ==
LOC: DL.OBCHECK 17:31 → DL.OB 18:20 → UNDOADMOB 18:20 → DL.OB 18:32 → OBSVTOIN 21:25 → DL.OB 21:25
PROVIDERS: ADMIT Family Medicine; ATTEND Family Medicine
PROC: 10E0XZZ Delivery of Products of Conception, External Approach (ICD-10-PCS; principal; 2023-08-20)
PROC: 0HQ9XZZ Repair Perineum Skin, External Approach (ICD-10-PCS; 2023-08-20)
PROC: 10907ZC Drainage of Amniotic Fluid, Therapeutic from Products of Conception, Via Natural or Artificial Opening (ICD-10-PCS; 2023-08-20)
PROC: 3E0R3BZ Introduction of Anesthetic Agent into Spinal Canal, Percutaneous Approach (ICD-10-PCS; 2023-08-20)
PROC: 00HU33Z Insertion of Infusion Device into Spinal Canal, Percutaneous Approach (ICD-10-PCS; 2023-08-20)
DX: O69.81X0 Labor and delivery complicated by cord around neck, without compression, not applicable or unspecified (principal); Z37.0 Single live birth; Z3A.38 38 weeks gestation of pregnancy; O70.0 First degree perineal laceration during delivery
CPT/HCPCS: 36415; 51701; 59409; 85027; A9270-GY; J2590; J7120